=== PATIENT | female | born 1955 | race Two or more races ===

== ENCOUNTER 2018-06-16 05:55 | Inpatient (IN) | payer OTHER ==
[~2018-06-16 05:55] MED LIST: ATIVAN1 M1 PO; HYZAAR 100-12.1 EACH PO; PROZAC20 MG PO; RESTORIL30 M1 PO; ZIAC 10/6.25 MG1 TAB PO
[2018-06-16] MEDS ORDERED: ULTRACET PO (09:04)
[2018-06-16] MEDS ORDERED: MACROBID 100 M100 MG PO (09:05)
== END 2018-06-17 13:18 | disposition home or self-care (01) | DRG 746 ==
LOC: CIR.AMB 05:55 → O/R 11:36 → SURH 11:36
PROVIDERS: ADMIT Obstetrics & Gynecology Gynecology
PROC: 0JQC0ZZ Repair Pelvic Region Subcutaneous Tissue and Fascia, Open Approach (ICD-10-PCS; 2018-06-16)
PROC: 0UQG0ZZ Repair Vagina, Open Approach (ICD-10-PCS; 2018-06-16)
PROC: 0HQ9XZZ Repair Perineum Skin, External Approach (ICD-10-PCS; 2018-06-16)
PROC: 0UQF0ZZ Repair Cul-de-sac, Open Approach (ICD-10-PCS; principal; 2018-06-16 06:45)
DX: N81.11 Cystocele, midline (principal); N99.71 Accidental puncture and laceration of a genitourinary system organ or structure during a genitourinary system procedure; N81.6 Rectocele; N81.5 Vaginal enterocele